=== PATIENT | female | born 1955 | race Caucasian/White ===

== ENCOUNTER 2017-06-13 00:01 | Outpatient (RCR) | payer MEDICARE, MEDICAID, SELFPAY ==
[2010-10-17 17:34] VITALS: BP 145/87
[~2017-06-13 00:01] MED LIST: QUET400T PO; RISP4 PO; [UNRECOGNIZED DRUG - CODE] PO
== END 2017-07-12 | disposition home or self-care (01) ==
LOC: IOPBV 00:01
DX: F25.9 Schizoaffective disorder, unspecified (principal)
CPT/HCPCS: 90832; 90853

== ENCOUNTER → 2018-02-06 | Outpatient (CLI) | payer MEDICARE, OTHER ==
[2018-02-06 15:25] LABS: APPEARANCE,URINE CLEAR (CLEAR); BILIRUBIN,URINE NEGATIVE (NEGATIVE); GLUCOSE, URINE (UA) NEGATIVE (NEGATIVE); KETONES,URINE NEGATIVE (NEGATIVE); LEUKOCYTE ESTERASE ,URINE NEGATIVE (NEGATIVE); NITRATE,URINE NEGATIVE (NEGATIVE); OCCULT BLOOD,URINE SMALL (NEGATIVE); PROTEIN,URINE NEGATIVE (NEGATIVE); UROBILINOGEN,URINE 0.2 mg/dL (<=1.0)
[2018-02-06 15:50] LABS: BACTERIA,URINE None Seen /HPF (None Seen); WBC,URINE None Seen /HPF (0-5)
[2018-02-06 15:51] LABS: RBC,URINE 0-2 /HPF (0-2); SQUAMOUS EPITHELIAL CELL,UR None Seen /LPF (None Seen)
== END | disposition home or self-care (01) ==
LOC: LABPV 11:30
DX: F25.9 Schizoaffective disorder, unspecified (principal)